=== PATIENT | female | born 1990 | race Caucasian/White ===

== ENCOUNTER 2017-12-11 10:57 | Emergency (ER) | payer OTHER ==
[2017-12-11] MEDS ORDERED: Adacel (T-DAP) 0.5 ML VIAL ONE (11:14)
[2017-12-11] MEDS ORDERED: Ibuprofen 600 MG TAB ONE (11:14)
--- NOTE | 2017-12-11 11:36 | RAD ---
LEFT WRIST 3 VIEWS: HISTORY: Wrist injury. FINDINGS: Scaphoid waist and ulnar styloid are intact. Metallic piercing is present at the dorsum of the wrist . No acute fracture, dislocation, aggressive osseous erosions, or other radiopaque foreign bodies ar e apparent. POS: [facility]
--- NOTE | 2017-12-11 11:45 | RAD ---
LEFT HAND 3 VIEWS: HISTORY: Dog bite. FINDINGS: Joint spaces are preserved. Metallic piercing at the dorsum of the wrist is evident. No acute fract ure, dislocation, aggressive osseous erosions, or other radiopaque foreign bodies are reliably demons trated. Soft tissue swelling over the medial aspect of the hand. IMPRESSION: No acute osseous abnormalities are dmeonstrated. POS: [facility]
--- NOTE | 2017-12-11 11:46 | RAD ---
LEFT FOREARM 2 VIEWS: HISTORY: Dog bite wound. FINDINGS: Ulna and radius are intact. Metallic piercing at the dorsum of the wrist. No acute fracture, disloc ation, or aggressive osseous erosions, or other radiopaque foreign bodies are evident. IMPRESSION: No acute osseous abnormalities are demonstrated. POS: [facility]
== END 2017-12-11 11:33 | disposition home or self-care (01) ==
LOC: SCSER 10:57
DX: S61.452A Open bite of left hand, initial encounter (principal); G43.909 Migraine, unspecified, not intractable, without status migrainosus; J45.909 Unspecified asthma, uncomplicated; F32.9 Major depressive disorder, single episode, unspecified; Z87.891 Personal history of nicotine dependence; W54.0XXA Bitten by dog, initial encounter
CPT/HCPCS: 90471; 90715